=== PATIENT | male | born 1955 | race Caucasian/White ===

== ENCOUNTER → 2021-01-20 | Day surgery (SDC) | payer MEDICARE ==
[~2021-01-20] VITALS: Ht 178.1 cm; Wt 138.7 kg
[~2021-01-20] MED LIST: AMLODIPINE BES2.5 MG PO; BISOPROLOL FUMAR5 MG PO; COZAAR50 MG PO; ECOTRIN325 MG PO; HCTZ12.5 MG PO; LASIX40 MG PO; VIBRAMYCIN100 MG PO
[2021-01-20 08:17] LABS: HGB 14.2 g/dl (13.2-18.0); MCH 23.9 pg (25.0-31.0); MCHC 32.3 g/dL (32.0-36.0); MCV 74.2 fL (78.0-100.0); MPV 9.6 fL (6.0-9.5); RBC 5.93 M/uL (4.70-6.00); RDW 16.1 % (11.5-14.0); WBC 7.6 K/uL (4.0-10.5)
[2021-01-20 08:43] LABS: BILIRUBIN - TOTAL 0.5 mg/dL (0.2-1.0); BUN/CREAT RATIO (CALC) 11.8 RATIO; CREATININE 0.68 mg/dL (0.67-1.17); GLOBULIN (CALCULATION) 4.1 g/dL; POTASSIUM 3.9 mmol/L (3.5-5.1); TOTAL PROTEIN 8.1 g/dL (6.4-8.2)
== END | disposition home or self-care (01) ==
LOC: FAS 01-02 09:00
PROVIDERS: Surgery
DX: D12.6 Benign neoplasm of colon, unspecified (principal); K58.9 Irritable bowel syndrome, unspecified; R19.5 Other fecal abnormalities; I10 Essential (primary) hypertension; E11.9 Type 2 diabetes mellitus without complications; Z96.653 Presence of artificial knee joint, bilateral; Z79.82 Long term (current) use of aspirin; Z68.41 Body mass index [BMI] 40.0-44.9, adult; G47.30 Sleep apnea, unspecified
CPT/HCPCS: 36415; 80053; 82962; J0690; J1610; J2704; J7120